=== PATIENT | female | born 1945 | race Asian ===

== ENCOUNTER 2016-11-07 12:59 | Emergency (ER) | payer MEDICARE, OTHER ==
[~2016-11-07] VITALS: Ht 157.5 cm; Wt 63.6 kg
[~2016-11-07 12:59] MED LIST: AMLO-511 PO; ASPI-825 PO; ATEN50TA PO; CALC1TAB15 PO; DOCU240C PO; ERGO400C PO; ESOM40CA PO; FISH1CAP27 PO; LEVO25TA9 PO
[2016-11-07] MEDS ORDERED: METO25 PO (13:12)
[2016-11-07] MEDS ORDERED: LEVO88TA4 PO (13:12)
[2016-11-07] MEDS ORDERED: OMEP20 PO (13:12)
[2016-11-07] MEDS ORDERED: HYDROCODONE/ACETAMINOPHEN 5-325 MG TABLET PO ONE (13:45)
[2016-11-07 14:30] VITALS: BP 138/81
[2016-11-07 14:58] LABS: CREATINE KINASE MB 0.5 ng/mL (0-5); CREATINE KINASE, TOTAL 232 U/L (26-192)
== END 2016-11-07 15:19 | disposition home or self-care (01) ==
LOC: EMS 13:02
DX: M25.511 Pain in right shoulder (principal); M62.838 Other muscle spasm; K21.9 Gastro-esophageal reflux disease without esophagitis; I10 Essential (primary) hypertension; E03.9 Hypothyroidism, unspecified
CPT/HCPCS: 93005; 99285

== ENCOUNTER → 2016-11-08 | Outpatient (CLI) | payer MEDICARE, OTHER ==
[~2016-11-08] MED LIST changes: -AMLO-511 PO; -CALC1TAB15 PO; -DOCU240C PO; -ERGO400C PO; -ESOM40CA PO; -FISH1CAP27 PO; -LEVO25TA9 PO; +LEVO88TA4 PO; +METO25 PO; +OMEP20 PO
== END | disposition home or self-care (01) ==
LOC: RADPV 15:22
PROVIDERS: ATTEND Legal Medicine
DX: M47.812 Spondylosis without myelopathy or radiculopathy, cervical region (principal); M50.322 Other cervical disc degeneration at C5-C6 level; M50.323 Other cervical disc degeneration at C6-C7 level; M53.82 Other specified dorsopathies, cervical region
CPT/HCPCS: 72040